=== PATIENT | male | born 1980 | race Caucasian/White ===

== ENCOUNTER → 2021-03-07 02:04 | Outpatient (CLI) | payer BC, SELFPAY ==
[2021-03-08 14:37] LABS: SARS-CoV-2 RNA PCR Negative
== END ==
PROVIDERS: PCP Family Medicine; Visit Provider Family Medicine
DX: R68.89 Other general symptoms and signs (principal); Z20.822 Contact with and (suspected) exposure to COVID-19
CPT/HCPCS: C9803; U0003; U0005

== ENCOUNTER 2021-03-22 14:10 | Emergency (ER) | payer BC, SELFPAY ==
[2021-03-22 14:23] VITALS: BP 139/98; PULSE 102; RESP 18; TEMP 36.7; O2SAT 100
[2021-03-22 14:32] VITALS: BP 139/98; PULSE 102; RESP 18; TEMP 36.7; O2SAT 100
--- NOTE | 2021-03-22 14:56 | ED.URI ---
HPI - URI/Sore Throat General Chief Complaint: Upper Respiratory Infection Stated Complaint: Cold/flu Source: patient and RN notes reviewed Mode of arrival: ambulatory History of Present Illness HPI Narrative: This is a 40-year-old male who presented to urgent care with complaints of a cough, body aches, chills, andfatigue.. Patient notes that he has had his symptoms for approximately 2 days. Patient did contact his primary care physician who prescribed him a Z-Luis Alberto, prednisone and Tessalon Perles. Patient is not sure of his diagnosis by his primary care physician. Patient did test negative for influenza today he also notes that before he came here he tested with a rapid x2 both being negative. We will complete COVID PCR on this patient. Related Data Home Medications Medication Instructions Recorded Confirmed atorvastatin 40 mg PO DAILY 03/22/21 03/22/21 carbamazepine 200 mg PO DAILY 03/22/21 03/22/21 trazodone 50 mg PO PRN PRN 03/22/21 03/22/21 Allergies Allergy/AdvReac Type Severity Reaction Status Date / Time No Known Allergies Allergy Mild Verified 03/22/21 14:21 Review of Systems Review of Systems: A 14 organ system Review of Systems was performed and pertinent positives included in the HPI, otherwise remaining ROS is negative. Exam Narrative: GENERAL: This is a well-nourished, well-developed patient, in no apparent distress. HEAD: normocephalic, atraumatic. EYES: PERRL. Sclera clear/white. Vision is grossly intact. EARS: External ears normal, auditory canals clear and without drainage, TMs normal without perforation. Hearing grossly intact. NOSE: External nose normal with no obvious nasal discharge, nares without redness, no rhinorrhea. Appears congested THROAT: Mucous membranes moist, posterior pharynx clear. NECK: Neck supple, non-tender without lymphadenopathy, masses or thyromegaly. CARDIOVASCULAR: Regular rate and rhythm without murmurs, gallops, or rubs. RESPIRATORY: Clear to auscultation. Breath sounds equal bilaterally. No wheezes, rales, or rhonchi. GASTROINTESTINAL: Abdomen soft, non-tender, nondistended. Bowel sounds are active. No hepato-splenomegaly, or palpable masses. No guarding. SKIN: warm, intact with no suspicious lesions or rash, good texture and turgor. NEURO: awake, alert, and oriented to person, place and time. There were no obvious focal neurologic abnormalities. Steady gait EXTREMITIES: Normal range of motion. No edema. No calf tenderness. Negative Homans sign bilaterally. BACK: Nontender without deformity or crepitance. No flank tenderness. Course Course Emergency Course: Patient treated for viral illness with Flonase, Claritin and guaifenesin. Influenza negative COVID PCR pending Level of Care: Express Care Visit Vital Signs Vital signs: Vital Signs Temperature 98.1 F 03/22/21 14:23 Pulse Rate 102 H 03/22/21 14:23 Respiratory Rate 18 03/22/21 14:23 Blood Pressure 139/98 H 03/22/21 14:23 Pulse Oximetry 100 03/22/21 14:23 Temperature 98.1 F 03/22/21 14:32 Pulse Rate 102 H 03/22/21 14:32 Respiratory Rate 18 03/22/21 14:32 Blood Pressure 139/98 H 03/22/21 14:32 Pulse Oximetry 100 03/22/21 14:32 MDM - URI/Sore Throat Differential Diagnosis Differential diagnosis: Likely upper respiratory infection, viral infection, influenza and pharyngitis Lab Data Labs: Influenza A Screen Negative Reference Range: Negative Influenza B Screen Negative Reference Range: Negative Discharge Plan Discharge Clinical Impression: Viral infection, Encounter for laboratory testing for COVID-19 virus Patient Disposition: Home, Self-Care Condition: Stable Instructions: Antibiotic Form, Viral Syndrome (ED) Additional Instructions: This is likely viral illness, no antibiotic is needed at this time. Treatment is aimed toward your spe
[2021-03-23 21:55] LABS: SARS-CoV-2 RNA PCR Negative
== END 2021-03-22 14:51 | disposition home or self-care (01) ==
PROVIDERS: Emergency Provider Nurse Practitioner; PCP Family Medicine
DX: B34.9 Viral infection, unspecified (principal); Z20.822 Contact with and (suspected) exposure to COVID-19
CPT/HCPCS: 87804; 99213; C9803; G0463; U0003; U0005

== ENCOUNTER 2023-11-15 18:17 | Emergency (ER) | payer OTHER, SELFPAY ==
[2023-11-15 18:18] VITALS: BP 135/93; PULSE 134; RESP 16; TEMP 36.4; O2SAT 97
--- NOTE | 2023-11-15 18:25 | ECG_ITS ---
Test Date: 2023-11-15 19:05:42 Measurements Intervals [place] Rate: 89 P: 47 [place]: 116 QRS: 19 QRSD: 104 T: 19 QT: 342 QTc: 418 Interpretive Statements SINUS RHYTHM WITH SHORT [place] INTERVAL INCOMPLETE RIGHT BUNDLE BRANCH BLOCK BASELINE WANDER- V6 BORDERLINE ECG No previous ECG available for comparison Electronically Signed On 11-16-2023 15:23:32 CDT by Jean Menchaca D.O.
[2023-11-15 18:49] LABS: Basophils Percent Auto 0.6 % (0.2-1.2); Eosinophils Absolute Auto 0.1 K/mm3 (0-0.3); Eosinophils Percent Auto 2.1 % (0-4.4); Hematocrit 44.8 % (42.0-52.0); Hemoglobin 15.9 g/dL (14.0-18.0); Immature Granulocyte Absolute 0.02 K/mm3 (0.00-0.031); Immature Granulocyte Percent A 0.3 % (0-0.5); Lymphocytes Absolute Auto 2.04 K/mm3 (0.9-3.2); Lymphocytes Percent Auto 30.4 % (18.3-44.2); Mean Corpuscular HGB Conc 35.5 g/dl (32-36); Mean Corpuscular Hemoglobin 31.5 pg (26-34); Mean Corpuscular Volume 88.9 fl (80-100); Mean Platelet Volume 8.8 fl (7.4-10.4); Monocytes Absolute Auto 0.5 K/mm3 (0.1-0.6); Monocytes Percent Auto 7.7 % (2.6-8.5); Neutrophils Percent Auto 58.9 % (45.5-73.1); Platelet Count Result 274 k/mm3 (150-375); Red Blood Count 5.04 M/mm3 (4.6-6.20); Red Cell Distribution Width 12.2 % (11.5-14.5); White Blood Count 6.7 K/mm3 (4.5-10.0)
[2023-11-15 19:12] LABS: Acetaminophen < 10 ug/mL (10-30); Alanine Aminotransferase 46 U/L (6-50); Alkaline Phosphatase 95 U/L (38-126); Anion Gap 15 mmol/L (4-12); Aspartate Amino Transferase 38 U/L (17-59); Bilirubin,Total 0.6 mg/dL (0.2-1.3); Blood Urea Nitrogen 12 mg/dL (9-20); Calcium 9.1 mg/dL (8.4-10.2); Carbon Dioxide 21 mmol/L (22-30); Chloride 103 mmol/L (98-107); Estimated CRCL calculation 116 ml/min; Estimated Glomerular Filt Rate > 60; Glucose 96 mg/dL (65-110); Potassium 3.9 mmol/L (3.4-5.0); Salicylate < 1.0 mg/dL (2-20); Sodium 139 mmol/L (137-145)
[2023-11-15 19:13] LABS: Ethanol 165 mg/dL (<10)
[2023-11-15 19:21] LABS: Amphetamine Screen Urine Negative (Negative); Barbiturate Screen Urine Negative (Negative); Benzodiazepines Screen Urine Negative (Negative); Cannabinoid Screen Urine Negative (Negative); Cocaine Screen Urine Negative (Negative); Methadone Screen Urine Negative (Negative); Opiate Screen Urine Negative (Negative); Phencyclidine Screen Urine Negative (Negative)
[2023-11-15 20:01] LABS: Add Urine Microscopic? YES; Appearance Urine Clear (Clear); Bacteria Urine None Seen /hpf; Bilirubin Urine Negative (Negative); Blood Urine Negative (Negative); Color Urine Yellow (Yellow); Glucose Urine UA Negative (Negative); Ketones Urine Negative (Negative); Leukocyte Esterase Ur Trace LEU/UL (Negative); Need Manual Microscopic Reviewed; Nitrate Urine Negative (Negative); Non Pathogenic Casts 0-2; Protein Urine Negative (Negative); RBC Urine 0-2 /hpf (0-2); Specific Grav Ur 1.004 (1.001-1.035); Squamous Epithelial Cell Urine None Seen /hpf (Few); Urobilinogen Urine 0.2 mg/dL (<2.0); WBC Urine 0-5 /hpf (0-3); pH Urine 5.5 (5.0-9.0)
--- NOTE | 2023-11-15 21:14 | ED.PSYCH ---
HPI - Psych General Chief Complaint: Psychiatric Symptoms Stated Complaint: im not doing well Time Seen by Provider: 11/15/23 18:38 Source: patient Mode of arrival: ambulatory Limitations: no limitations History of Present Illness HPI Narrative: Patient is a 42-year-old male who presents to the ER with complaints of increased feelings of depression over the last couple weeks. He reports he has a history of bipolar disorder, but has been out of his psychiatric medication for the past week. Patient reports he has no plan to commit suicide, but feels very depressed, worthless, and doing a lot of self blame. He also reports using alcohol earlier in the day but denies every day use. Patient denies any illicit drug use or nicotine use. He also denies any chest pain, shortness of breath, or recent illness. MD complaint: feels depressed Context: recent alcohol abuse and not taking psychiatric medications Associated psychiatric symptoms: depression Related Data Home Medications Medication Instructions Recorded Confirmed atorvastatin 40 mg tablet 40 mg PO DAILY 03/22/21 03/22/21 carbamazepine 200 mg 200 mg PO DAILY 03/22/21 03/22/21 capsule,extended release [id number] trazodone 50 mg tablet 50 mg PO PRN PRN Insomnia 03/22/21 03/22/21 Allergies Allergy/AdvReac Type Severity Reaction Status Date / Time No Known Allergies Allergy Mild Verified 03/22/21 14:21 Review of Systems Review of Systems: All systems reviewed & are unremarkable except as noted in HPI and below PMFSH Social History Social History Substance use type: does not use Exam Narrative: GENERAL: Well appearing, well-nourished, non-toxic, in no acute distress. RESPIRATORY: Airway patent, respirations nonlabored. Clear to auscultation bilaterally, no rales, rhonchi, wheezing. CARDIOVASCULAR: Regular rate and rhythm without murmurs, rubs, or gallops. Peripheral pulses 2+ and equal bilaterally. ABDOMINAL: Soft, nontender, nondistended, no hepatosplenomegaly. Normoactive BS. MUSCULOSKELETAL: Moves all extremities. Strength/ROM intact without gross deformities. SKIN: Warm, dry, normal color. No rashes. NEURO: A&O X3. Speech clear. Cranial nerves II-XII grossly intact. Steady gait. No ataxic movements. PSYCHIATRIC: Tearful. Normal interaction. Course Vital Signs Vital signs: Vital Signs Temperature 36.4 C 11/15/23 18:18 Pulse Rate 134 H 11/15/23 18:18 Respiratory Rate 16 11/15/23 18:18 Blood Pressure 135/93 H 11/15/23 18:18 Pulse Oximetry 97 11/15/23 18:18 Oxygen Delivery Room Air 11/15/23 18:18 Temperature 36.4 C 11/15/23 18:18 Pulse Rate 134 H 11/15/23 18:18 Respiratory Rate 16 11/15/23 18:18 Blood Pressure 135/93 H 11/15/23 18:18 Pulse Oximetry 97 11/15/23 18:18 Oxygen Delivery Room Air 11/15/23 18:18 MDM - Psych MDM Narrative Medical decision making narrative: Patient is a 42-year-old male who presents to the ER with complaints of increased feelings of depression over the last couple weeks. He reports he has a history of bipolar disorder, but has been out of his psychiatric medication for the past week. Patient reports he has no plan to commit suicide, but feels very depressed, worthless, and doing a lot of self blame. He also reports using alcohol earlier in the day but denies every day use. Patient denies any illicit drug use or nicotine use. He also denies any chest pain, shortness of breath, or recent illness. Bloodwork was drawn and are results were WNL except for an elevated ethanol level (165). Will repeat an ethanol level and have pt seen by crisis once he is medically cleared. 0115-Pt is medically cleared for crisis screening 0200-Crisis team made a safety plan with pt and he will be discharged home with plans for outpatient follow-up. Differential Diagnosis Differential diagnosis: Likely acute psychosis, suicidal
[2023-11-15 21:52] LABS: Influenza A QL RT-PCR Negative (Negative); Influenza B QL RT-PCR Negative (Negative); RSV RNA, RT-PCR Negative (Negative); SARS-CoV-2 RNA PCR Negative (Negative)
[2023-11-15 22:21] LABS: Ethanol 91 mg/dL (<10)
--- NOTE | 2023-11-15 22:39 | PC.NURSE ---
patient is resting peacefully in room and very cooperative with staff. provided them with 2 cups of water in Styrofoam cups, no further requests at this time.
--- NOTE | 2023-11-15 23:45 | PC.NURSE ---
care and report given to NIKITA Asher. all questions answered.
--- NOTE | 2023-11-15 23:47 | PC.NURSE ---
Report received from NIKITA Monsivais. Assumed care of patient at this time.
[2023-11-16 01:22] LABS: Ethanol 47 mg/dL (<10)
[2023-11-16 02:20] VITALS: BP 118/84; PULSE 87; RESP 17; O2SAT 100
== END 2023-11-16 02:33 | disposition home or self-care (01) ==
PROVIDERS: Emergency Medicine; Emergency Provider Registered Nurse; PCP Family Medicine
DX: F32.A Depression, unspecified (principal); Z20.822 Contact with and (suspected) exposure to COVID-19; Z91.148 Patient's other noncompliance with medication regimen for other reason
CPT/HCPCS: 36415; 80053; 80307; 81001; 84443; 85025; 87637; 93005; 99284